=== PATIENT | female | born 1975 | race Hispanic/Latino ===

== ENCOUNTER 2018-11-14 00:56 | Inpatient (IN) | payer SELFPAY ==
[2018-11-14] MEDS ORDERED: ONDANSETRON 4 MG/2 ML VIAL ONE ×2 (02:35→13:16)
[2018-11-14] MEDS ORDERED: NA CHLORIDE 0.9% 1,000 ML ONE ×2 (02:35→05:06)
[2018-11-14] MEDS ORDERED: MORPHINE 2 MG/ML SYR ONE ×2 (02:35→03:39)
[2018-11-14 03:03] LABS: Urine Blood TRACE (NEG); Urine Glucose NEGATIVE (NEG); Urine Protein 2+ (NEG); Urine pH 8.5 (5.0-7.0)
[2018-11-14 03:20] LABS: ALT/SGPT 21 U/L (12-78); AST/SGOT 16 U/L (15-37); Albumin 4.5 g/dL (3.4-5.0); Alkaline Phosphatase 71 U/L (45-117); BUN Blood Urea Nitrogen 13 mg/dL (7-18); Bicarbonate 26 mmol/L (21-32); Bilirubin Direct 0.2 mg/dL (0-0.2); Bilirubin Total 0.5 mg/dL (0.2-1.0); Glucose Level 146 mg/dL (74-106); Lipase 118 U/L (73-393); Potassium 3.3 mmol/L (3.5-5.1); Sodium Level 141 mmol/L (136-145)
[2018-11-14 03:38] LABS: Absolute Neutrophil 14.8 K/uL (1.8-8.0); Basophils % 0.2 % (0-1.3); Hematocrit 28.7 % (36.0-45.0); Lymphocytes % 5.7 % (15.3-44.8); MPV 10.1 fL (7.6-11.3); Monocytes % 6.2 % (3.3-12.3); RBC Red Blood Cell Count 4.62 M/uL (3.86-4.86)
[2018-11-14 03:44] LABS: Urine Bacteria <20 /HPF (<20); Urine RBC <5 /HPF (NONE SEEN)
[2018-11-14 03:45] LABS: Urine Culture Reflex Order NOT NEEDED
[2018-11-14 04:14] LABS: Blood Morphology Comment NOTED (NOT SEEN); Platelet Estimate ADEQ; Polychromasia 1+
[2018-11-14 04:15] LABS: Hypochromasia 1+; Ovalocytes 1+
--- NOTE | 2018-11-14 04:38 | ER ---
Nurse's Notes [facility] Name: Sujata Santillan Age: 43 yrs Sex: Female : 1975 Arrival Date: 11/14/2018 Time: 00:56 Bed 8 Private MD: Krzysztof Padron Diagnosis: Acute appendicitis Presentation: 11/14 01:23 Presenting complaint: Patient states: vomiting since eating lunch "I think I have food kl poisoning" reports multiple episodes with abdominal pain. Transition of care: patient was not received from another setting of care. Onset of symptoms was November 14, 2018. Risk Assessment: Do you want to hurt yourself or someone else? Patient reports no desire to harm self or others. Initial Sepsis Screen: Does the patient meet any 2 criteria? No. Patient's initial sepsis screen is negative. Care prior to arrival: Medication(s) given: immodium. 01:23 Method Of Arrival: Ambulatory 01:23 Acuity: NARDA 3 kl 02:12 Initial Sepsis Screen: Does the patient have a suspected source of infection? No. rr5 Patient's initial sepsis screen is negative. Triage Assessment: 01:26 General: Appears distressed, uncomfortable, Behavior is calm, cooperative. Pain: Complains of pain in abdomen Pain currently is 10 out of 10 on a pain scale. GI: Reports lower abdominal pain, upper abdominal pain, anorexia, intolerance of fluids, intolerance of food, nausea, vomiting. 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 - Social history:: Smoking status: Patient/guardian denies using tobacco. - Ebola Screening: : Patient negative for fever greater than or equal to 101.5 degrees Fahrenheit, and additional compatible Ebola Virus Disease symptoms. Screenin:00 Abuse screen: Denies threats or abuse. Denies injuries from another. Nutritional rr5 screening: No deficits noted. Tuberculosis screening: No symptoms or risk factors identified. Fall Risk None identified. Assessment: 02:00 General: Appears in no apparent distress. uncomfortable, Behavior is calm, cooperative, rr5 appropriate for age. Pain: Complains of pain in abdomen Pain does not radiate. Pain currently is 10 out of 10 on a pain scale. Quality of pain is described as aching, Pain began gradually, Is intermittent. Neuro: Level of Consciousness is awake, alert, obeys commands, Oriented to person, place, time, situation, Appropriate for age. Cardiovascular: Capillary refill < 3 seconds Patient's skin is warm and dry. Respiratory: Airway is patent Respiratory effort is even, unlabored, Respiratory pattern is regular, symmetrical. GI: Abdomen is round Reports lower abdominal pain, upper abdominal pain, diarrhea, nausea, vomiting. : No signs and/or symptoms were reported regarding the genitourinary system. EENT: No signs and/or symptoms were reported regarding the EENT system. Derm: Skin is intact, Skin temperature is warm. Musculoskeletal: No signs and/or symptoms reported regarding the musculoskeletal system. 03:15 Reassessment: Patient appears in no apparent distress at this time. No changes from rr5 previously documented assessment. having abdominal pain pain score of 8/10. 04:10 Reassessment: Patient appears in no apparent distress at this time. Patient is alert, rr5 oriented x 3, equal unlabored respirations, skin warm/dry/pink. complaints of unusual feeling on the IV site area. no itchiness no redness, no noted. Patient states feeling better. Patient states symptoms have improved. 05:55 Reassessment: Patient appears in no apparent distress at this time. Patient is alert, rr5 oriented x 3, equal unlabored respirations, skin warm/dry/pink. complaining of abdominal pain.ED provider aware with order made and carried out. Vital Signs: 01:26 BP 122 / 53; Pulse 70; Resp 16; Temp 97.3; Pulse Ox 100% on R/A; Pain 10/10; kl 02:00 Weight 63.5 kg; Height 5 ft. 2 in. (157.48 cm); rr5 02:53 BP 116 / 63; Pulse 69; Resp 18; Pulse Ox 99% ; rr5 03:30 BP 105 / 67; Pulse 66; Resp 16; Pulse Ox 98% ; rr5 04:10 BP 101 / 61; Pulse 65; Resp 17; Pulse Ox 99% ; rr5 05:00 BP 105 / 60; Pulse 60; Resp 17; Pulse Ox 99% ; rr5 05:57 BP 103 / 71; Pulse 88; Resp 17; Pulse Ox 100% ; rr5 02:00 Body Mass Index 25.61 (63.50 kg, 157.48 cm) rr5 ED Course: 00:56 Patient arrived in ED. am2 00:57 Krzysztof Padron MD is Private Physician. am2 01:25 Triage completed. kl 01:51 Tye Gandara MD is Attending Physician. gs 02:00 Patient has correct armband on for positive identification. Bed in low position. Call rr5 light in reach. Side rails up X2. Pulse ox on. NIBP on. 02:02 Shayne Bellamy RN is Primary Nurse. rr5 02:12 Arm band placed on. rr5 02:17 Fredis Arzola PA is PHCP. cp 02:29 Radiology exam delayed due to test not completed at this time. 02:35 Inserted saline lock: 20 gauge in right forearm, using aseptic technique. Blood rr5 collected. 02:52 Urine Microscopic Only Sent. rr5 03:22 CT completed. Patient tolerated procedure well. Patient moved to CT via wheelchair. Patient moved back from CT. 04:36 Henrique Gomez MD is Hospitalizing Provider. gs 05:22 Type And Screen Sent. rr5 05:49 No provider procedures requiring assistance completed. Patient admitted, IV remains in rr5 place. intact, No redness/swelling at site. Administered Medications: 02:35 Drug: NS 0.9% 1000 ml Route: IV; Rate: 1 bolus; Site: right forearm; rr5 04:00 Follow up: Response: No adverse reaction; IV Status: Completed infusion; IV Intake: rr5 1000ml 02:40 Drug: Zofran 4 mg Route: IVP; Site: right forearm; rr5 05:48 Follow up: Response: No adverse reaction rr5 02:42 Drug: morphine 2 mg Route: IVP; Site: right forearm; rr5 05:47 Follow up: Response: No adverse reaction rr5 03:25 Drug: morphine 2 mg Route: IVP; Site: right forearm; rr5 05:46 Follow up: Response: No adverse reaction rr5 05:10 Drug: cefOXitin 1 grams Route: IVPB; Infused Over: 30 mins; Site: right forearm; rr5 05:48 Follow up: Response: No adverse reaction; IV Status: Completed infusion; IV Intake: rr5 100ml 05:11 Drug: NS 0.9% 1000 ml Route: IV; Rate: 150 ml/hr; Site: right forearm; rr5 05:46 Follow up: IV Status: Infusion continued upon admission; IV Intake: 150ml rr5 05:55 Drug: morphine 4 mg Route: IVP; Site: right forearm; rr5 07:00 Follow up: Response: No adverse reaction rr5 Intake: 04:00 IV: 1000ml; Total: 1000ml. rr5 05:46 IV: 150ml; Total: 1150ml. rr5 05:48 IV: 100ml; Total: 1250ml. rr5 Outcome: 04:38 Decision to Hospitalize by Provider. 05:49 Admitted to ER Hold. Please see [facility] for further documentation. rr5 05:49 Condition: stable 05:49 Instructed on the need for admit. 08:45 Admitted to Med/surg accompanied by tech, via wheelchair, with chart, Report called to mulugeta Schneider RN 08:46 Patient left the ED. aa5 Signatures: Loreta Buitrago RN RN Christopher Jones Audri RN RN aa5 Fredis Arzola PA PA cp Moreno, Amanda am2 Starr, Gregory, MD MD gs Roque, Raymond RN RN rr5
--- NOTE | 2018-11-14 04:39 | EDPHYS ---
Physician Documentation [facility] Name: Sujata Santillan Age: 43 yrs Sex: Female : 1975 Arrival Date: 11/14/2018 Time: 00:56 Bed 8 Private MD: Krzysztof Padron ED Physician Tye Gandara HPI: 11/14 02:25 This 43 yrs old Female presents to ER via Ambulatory with complaints of cp Vomiting. 02:25 The patient presents to the emergency department with nausea, that is moderate, cp vomiting, that is continuous, diarrhea, 4 times today. Onset: The symptoms/episode began/occurred today. Possible causes: bad food exposure. Associated signs and symptoms: Pertinent positives: abdominal pain, Pertinent negatives: constipation, fever, GI bleeding. Severity of symptoms: in the emergency department the symptoms are unchanged despite home interventions. 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 - Social history:: Smoking status: Patient/guardian denies using tobacco. - Ebola Screening: : Patient negative for fever greater than or equal to 101.5 degrees Fahrenheit, and additional compatible Ebola Virus Disease symptoms. ROS: 02:28 Eyes: Negative for injury, pain, redness, and discharge. cp 02:28 Constitutional: Positive for poor PO intake, Negative for body aches, chills, fever. 02:28 ENT: Negative for drainage from ear(s), ear pain, sore throat, difficulty swallowing, difficulty handling secretions. 02:28 Cardiovascular: Negative for chest pain. 02:28 Respiratory: Negative for cough, shortness of breath, wheezing. 02:28 Abdomen/GI: Positive for abdominal pain, nausea, vomiting, and diarrhea, Negative for constipation, black/tarry stool, rectal bleeding. 02:28 Back: Negative for pain at rest, pain with movement, radiated pain. 02:28 : Negative for urinary symptoms. 02:28 Skin: Negative for cellulitis, rash. 02:28 Neuro: Negative for altered mental status, headache, weakness. 02:28 All other systems are negative. Exam: 02:35 Constitutional: The patient appears in no acute distress, alert, awake, non-toxic, well cp developed, well nourished. 02:35 Head/Face: Normocephalic, atraumatic. cp 02:35 Eyes: Periorbital structures: appear normal, Conjunctiva: normal, no exudate, no injection, Sclera: no appreciated abnormality, Lids and lashes: appear normal, bilaterally. 02:35 ENT: External ear(s): are unremarkable, Nose: is normal, Mouth: Lips: moist, Oral mucosa: pink and intact, moist, Posterior pharynx: is normal, airway is patent, Voice: is normal. 02:35 Neck: ROM/movement: is normal, is supple, without pain, no nuchal rigidity. 02:35 Chest/axilla: Inspection: normal, Palpation: is normal, no crepitus, no tenderness. 02:35 Cardiovascular: Rate: normal, Rhythm: regular. 02:35 Respiratory: the patient does not display signs of respiratory distress, Respirations: normal, no use of accessory muscles, no retractions, no splinting, no tachypnea, labored breathing, is not present, Breath sounds: are clear throughout, no decreased breath sounds, no stridor, no wheezing. 02:35 Abdomen/GI: Inspection: abdomen appears normal, Bowel sounds: active, all quadrants, Palpation: soft, in all quadrants, moderate abdominal tenderness, in the umbilical area and right lower quadrant, rebound tenderness, is not appreciated, voluntary guarding, is elicited in the right lower quadrant. 02:35 Back: pain, is absent, ROM is normal, CVA tenderness, is absent. 02:35 Skin: cellulitis, is not appreciated, no rash present. Vital Signs: 01:26 BP 122 / 53; Pulse 70; Resp 16; Temp 97.3; Pulse Ox 100% on R/A; Pain 10/10; kl 02:00 Weight 63.5 kg; Height 5 ft. 2 in. (157.48 cm); rr5 02:53 BP 116 / 63; Pulse 69; Resp 18; Pulse Ox 99% ; rr5 03:30 BP 105 / 67; Pulse 66; Resp 16; Pulse Ox 98% ; rr5 04:10 BP 101 / 61; Pulse 65; Resp 17; Pulse Ox 99% ; rr5 05:00 BP 105 / 60; Pulse 60; Resp 17; Pulse Ox 99% ; rr5 05:57 BP 103 / 71; Pulse 88; Resp 17; Pulse Ox 100% ; rr5 02:00 Body Mass Index 25.61 (63.50 kg, 157.48 cm) rr5 MDM: 02:19 Patient medically screened. cp 02:30 Differential diagnosis: gastritis, cholecystitis, pancreatitis, appendicitis, cp diverticulitis, viral gastroenteritis, gastroenteritis, colitis. 04:36 Data reviewed: vital signs, nurses notes, radiologic studies. Response to treatment: gs the patient's symptoms have mildly improved after treatment. Physician consultation: Henrique Gomez MD and will see patient in inpatient room. 11/14 02:17 Order name: Basic Metabolic Panel 11/14 02:17 Order name: CBC with Diff 11/14 02:17 Order name: Creatinine for Radiology 11/14 02:17 Order name: Hepatic Function 11/14 02:17 Order name: Lipase 11/14 02:17 Order name: Urine Microscopic Only 11/14 02:48 Order name: Urine Dipstick--Ancillary (enter results) wa 11/14 02:48 Order name: Urine --Ancillary (enter results) wa 11/14 03:04 Order name: Urine --Ancillary; Complete Time: 03:15 EDMS 11/14 03:04 Order name: Urine Dipstick-Ancillary; Complete Time: 03:15 EDMS 11/14 03:15 Interpretation: Normal except: UKET 4+; UBLD TRACE; UPH 8.5; UPROT 2+. 11/14 03:17 Order name: Creatinine (Radiology Only); Complete Time: 04:22 EDMS 11/14 03:20 Order name: Basic Metabolic Panel; Complete Time: 04:22 EDMS 11/14 03:20 Order name: Liver (Hepatic) Function; Complete Time: 04:22 EDMS 11/14 03:20 Order name: Lipase; Complete Time: 04:22 EDMS 11/14 02:17 Order name: IV Saline Lock; Complete Time: 02:51 11/14 02:17 Order name: Labs collected and sent; Complete Time: 02:51 cp 11/14 02:18 Order name: CT Abd/Pelvis - W/Contrast 11/14 03:40 Order name: CBC with Automated Diff; Complete Time: 04:22 EDMS 11/14 03:45 Order name: Urine Microscopic Only; Complete Time: 04:22 EDMS 11/14 04:16 Order name: Manual Differential; Complete Time: 04:22 EDMS 11/14 04:23 Order name: Type And Screen 11/14 06:23 Order name: ABO/RH no charge; Complete Time: 07:15 EDMS 11/14 06:32 Order name: Type and Screen; Complete Time: 07:15 EDMS 11/14 02:17 Order name: Urine Test (obtain specimen); Complete Time: 02:52 cp Administered Medications: 02:35 Drug: NS 0.9% 1000 ml Route: IV; Rate: 1 bolus; Site: right forearm; rr5 04:00 Follow up: Response: No adverse reaction; IV Status: Completed infusion; IV Intake: rr5 1000ml 02:40 Drug: Zofran 4 mg Route: IVP; Site: right forearm; rr5 05:48 Follow up: Response: No adverse reaction rr5 02:42 Drug: morphine 2 mg Route: IVP; Site: right forearm; rr5 05:47 Follow up: Response: No adverse reaction rr5 03:25 Drug: morphine 2 mg Route: IVP; Site: right forearm; rr5 05:46 Follow up: Response: No adverse reaction rr5 05:10 Drug: cefOXitin 1 grams Route: IVPB; Infused Over: 30 mins; Site: right forearm; rr5 05:48 Follow up: Response: No adverse reaction; IV Status: Completed infusion; IV Intake: rr5 100ml 05:11 Drug: NS 0.9% 1000 ml Route: IV; Rate: 150 ml/hr; Site: right forearm; rr5 05:46 Follow up: IV Status: Infusion continued upon admission; IV Intake: 150ml rr5 05:55 Drug: morphine 4 mg Route: IVP; Site: right forearm; rr5 07:00 Follow up: Response: No adverse reaction rr5 Disposition: 20:43 Co-signature as Attending Physician, Tye Gandara MD. Disposition: 11/14/18 04:38 Hospitalization ordered by Henrique Gomez for Inpatient Admission. Preliminary diagnosis is Acute appendicitis. - Bed requested for Telemetry/MedSurg (Inpatient). - Status is Inpatient Admission. aa5 - Condition is Stable. - Problem is new. - Symptoms have improved. UTI on Admission? No Signatures: Dispatcher [employer] EDMS Loreta Buitrago, RN RN Quinten Waters MD MD [facility] Yana Mancilla RN RN aa5 Fredis Arzola PA PA cp Starr, Gregory, MD MD Shayne Bellamy, RN RN rr5 Corrections: (The following items were deleted from the chart) 05:08 04:38 Hospitalization Ordered by Henrique Gomez MD for Inpatient Admission. Preliminary diagnosis is Acute appendicitis. Bed requested for Telemetry/MedSurg (Inpatient). Status is Inpatient Admission. Condition is Stable. Problem is new. Symptoms have improved. UTI on Admission? No. 05:56 05:08 11/14/2018 04:38 Hospitalization Ordered by Henrique Gomez MD for Inpatient Admission. Preliminary diagnosis is Acute appendicitis. Bed requested for [facility] ER HOLD. Status is Inpatient Admission. Condition is Stable. Problem is new. Symptoms have improved. UTI on Admission? No. 08:46 05:56 11/14/2018 04:38 Hospitalization Ordered by Henrique Gomez MD for Inpatient aa5 Admission. Preliminary diagnosis is Acute appendicitis. Bed requested for Telemetry/MedSurg (Inpatient). Status is Inpatient Admission. Condition is Stable. Problem is new. Symptoms have improved. UTI on Admission? No.
[2018-11-14] MEDS ORDERED: NA CHLORIDE 0.9% 100 ML IV ONE (05:06)
[2018-11-14] MEDS ORDERED: CEFOXITIN/SWI 1gm 1 GM/10 ML SYR ONE (05:07)
[2018-11-14] MEDS ORDERED: MORPHINE 4 MG/ML SYR ONE (06:04)
[2018-11-14] MEDS ORDERED: ACETAMINOPHEN 500 MG TAB PO PRN (07:33)
[2018-11-14] MEDS ORDERED: ONDANSETRON 4 MG/2 ML VIAL IV PRN (07:33)
[2018-11-14] MEDS ORDERED: MORPHINE 4 MG/ML SYR IV PRN (07:33)
[2018-11-14 09:00] VITALS: BMI 25.6
[2018-11-14] MEDS: D5 0.45 NS 1,000 ML IV SCH ×4 (09:40→23:08)
[2018-11-14 10:21] LABS: Urine Appearance CLEAR; Urine Bilirubin NEGATIVE (NEG); Urine Blood TRACE (NEG); Urine Color YELLOW; Urine Glucose NEGATIVE (NEG); Urine Protein NEGATIVE (NEG); Urine Specific Gravity >=1.030 (1.005-1.030); Urine Urobilinogen 0.2 mg/dL (0.2-1.0)
[2018-11-14 10:22] LABS: Urine Microscopic Reflex ORDER UMIC
[2018-11-14 11:28] LABS: Urine Bacteria NONE SEEN /HPF (<20); Urine Culture Reflex Order NOT NEEDED
[2018-11-14] MEDS ORDERED: Ringers Lactate 1,000 ML IV ONE ×2 (11:46→13:12)
[2018-11-14] MEDS: CEFOXITIN/SWI 1gm 1 GM/10 ML SYR IV SCH ×3 (12:00→23:22)
[2018-11-14] MEDS ORDERED: CEFOXITIN SODIUM 1 GM/VIAL IVPB SCH (12:00)
[2018-11-14] MEDS ORDERED: PROPOFOL 200 MG/20 ML VIAL IV ONE (12:09)
[2018-11-14] MEDS ORDERED: ROCURONIUM 50 MG/5 ML VIAL IV ONE (12:09)
[2018-11-14] MEDS ORDERED: MIDAZOLAM HCL 2 MG/2 ML INJ ONE (12:09)
[2018-11-14] MEDS ORDERED: FENTANYL CITR 100 MCG/2 ML ONE ×2 (12:09→12:45)
[2018-11-14] MEDS ORDERED: LIDOCAINE 1% MPF 5 ML VIAL ONE (12:09)
[2018-11-14] MEDS ORDERED: BUPIVACAINE 0.5% PF 10 ML VIAL ONE ×2 (12:16)
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
[2018-11-14] MEDS ORDERED: SUCCINYLCHOLINE 20 MG/ML (10 ML) IV ONE (12:20)
[2018-11-14] MEDS ORDERED: LANO/MINERAL OIL/PETRO 3.5 GM ONE (12:43)
[2018-11-14] MEDS ORDERED: DEXAMETHASONE 10 MG/ML VIAL ONE (12:45)
[2018-11-14] MEDS ORDERED: KETOROLAC 30 MG/ML INJ ONE (13:15)
[2018-11-14] MEDS ORDERED: GLYCOPYRROLATE 0.2 MG/ML SYR ONE (13:15)
[2018-11-14] MEDS ORDERED: NEOSTIGMINE 1 MG/ML -10 ML VIAL ONE (13:16)
--- NOTE | 2018-11-14 13:20 | P.OP ---
Preoperative diagnosis: Acute abdomen Postoperative diagnosis: Acute appendicitis Primary procedure: Laparoscopic appendectomy Secondary procedure: BRYANT BLOCK Anesthesia: General Estimated blood loss: Less than 10 cc Specimen: 1 appendix Operative Technique: The patient brought the operating room placed supine on the table. After the induction of adequate general endotracheal anesthesia, the area of the abdomen was prepped with a DuraPrep solution, and she was draped in usual aseptic manner. A subumbilical incision was made. This brought down through skin and subcutaneous tissue. The Visiport was now used to enter the peritoneal cavity and created pneumoperitoneum to approximately 12 mm of mercury. Under direct vision a 5 mm trocar was placed in the lower midline, and another in the right upper quadrant. With the patient placed in Trendelenburg and rolled to the left really visualize the right lower quadrant. We could see there were some adhesions of omentum to the anterior abdominal wall were she had her previous . These were taken down using blunt sharp dissection. Attention was now turned towards the right lower quadrant. We could see a inflamed S operative appendix in the right lower quadrant. There was no evidence of perforation but there was considerable edema around the junction of the of the distal portion of the appendix were curled back up onto the cecum. The appendix was on full did. We could identify the base of the appendix at its junction with the cecum. A window was made in the mesentery of the appendix. The linear Stapler was now introduced and placed across the base in of the appendix at its junction with the cecum. The instrument was fired. The mesentery of the appendix was now identified. A vascular reload was applied to the stapling device which was placed across this. This was fired. Adequate hemostasis having been ensured these were was withdrawn. This pus was now placed into an Endo-Catch and brought out through the umbilical trocar site. The inspection of the right lower quadrant showed that there was some fluid in the pelvis which was aspirated. Some fibrous exudate was also aspirated using the suction device. The irrigant cabello francis fluid was used until the effluent was clear. At this point the patient is taken out of Trendelenburg again any remaining fluid was irrigated and removed from the pelvis. The umbilical trocar was now withdrawn. The umbilical trocar site was approximated with 3 interrupted sutures of absorbable material. Santana were then applied to the skin. Anterior abdominal wall was also blocked using 0.25% Marcaine as BRYANT block At the end the procedure the patient is in stable condition when sent to the recovery room. Needle sponge instrument count were correct. No drains were placed. Complications: None Transferred to: Recovery Room Condition: Good
[2018-11-14] MEDS: HYDROMORPHONE HCL 1 MG/ML INJ ONE ×2 (13:43→13:50)
[2018-11-14] MEDS: HYDROCODONE/APAP 7.5/325 MG TAB PO PRN (20:06)
--- NOTE | 2018-11-14 21:38 | RAD REPORT ---
EXAM DESCRIPTION: CT - Abdomen Pelvis W Contrast - 11/14/2018 5:40 am CLINICAL HISTORY: 43-year-old female with right lower abdomen pain. COMPARISON: None. TECHNIQUE: Axial CT images of the abdomen and pelvis was performed following the administration of i ntravenous contrast. Sagittal and coronal reconstructed images were then performed. The CT study is p erformed according to ALARA (as low as reasonably achievable) or ALARA/IMAGE GENTLY, with automatic a djustment of mA and/or kV according to patient size. FINDINGS: Lung bases: The lung bases are clear. Liver: The liver is normal in size and configuration. No focal hepatic abnormalities are identified. Liver attenuation is within normal limits. Spleen: The spleen is normal in size, configuration and attenuation. There are multiple incidental sp lenic granulomas. Gallbladder and bile duct: The gallbladder is well distended and unremarkable. There is no biliary du ctal dilatation. Pancreas: The pancreas is grossly normal in size and configuration. Adrenal Glands: The adrenal glands are normal in size and configuration. Kidneys: The kidneys are normal in size and configuration. There is no evidence of hydronephrosis. Th ere is a punctate nonobstructing midpole left renal calculus. No definite solid or cystic renal mass lesions are identified. Stomach: The stomach is grossly normal. There is no significant hiatal hernia. Bowel: The bowel gas pattern is nonspecific and nonobstructive. Appendix: There is a dilated fluid filled tubular structure in the right lower quadrant with surround ing mesenteric inflammation consistent with acute appendicitis. The tip of the appendix measures appr oximately 9 mm in diameter. There is no evidence of rupture. There is no free fluid in the pelvis. Free air: There is no evidence of free air. Free fluid: There is no evidence of free fluid. Vasculature: The aorta is normal in caliber and contour. The inferior vena cava is grossly unremarkab le. Lymphadenopathy: No pathologic lymphadenopathy is identified. Bladder:The bladder is incompletely distended and smooth in contour.. Reproductive: The uterus is normal in size. There is retroflexion of the uterus and there is a 1.8 x 1.6 cm focal area of decreased attenuation within the lower uterine segment or cervix which may repre sent a fibroid or nabothian cysts. There is also a focal 2.5 x 2.2 cm soft tissue mass arising from t he anterior body of the uterus likely representing an exophytic subserosal fibroid. Bones: No acute osseous abnormalities are identified. Soft tissues: No focal soft tissue abnormalities are identified. IMPRESSION: 1. CT findings consistent with acute non ruptured appendicitis. 2. Retroflexed uterus which contains an approximately 2.5 cm exophytic subserosal fibroid anteriorly and either a myometrial fibroid in the lower uterine segment versus a nabothian cyst. 3. Evidence of prior granulomatous disease. 4. Nonobstructing punctate calcification in the midpole of the left kidney. Electronically signed by Jackie Madrid DO 11/14/2018 4:25 AM BUS VAN DRIVER Due to temporary technical issues with the PACS/Fluency reporting system, reports are being signed by the in house radiologist as a courtesy to ensure prompt reporting. The interpreting radiologist is f ully responsible for the content of the report.
[2018-11-15 00:34] VITALS: O2SAT 99
[2018-11-15] MEDS: HYDROCODONE/APAP 7.5/325 MG TAB PO PRN ×2 (03:57→12:39)
[2018-11-15] MEDS: CEFOXITIN/SWI 1gm 1 GM/10 ML SYR IV SCH ×3 (05:20→18:00)
[2018-11-15] MEDS: D5 0.45 NS 1,000 ML IV SCH ×3 (05:20→16:00)
[2018-11-15 18:25] VITALS: BP 109/65; TEMP 98.6
== END 2018-11-15 17:57 | disposition home or self-care (01) | DRG 343 ==
LOC: ER 00:56 → ERHOLD 04:57 → 2ND 08:40
PROVIDERS: ADMIT Surgery; ATTEND Surgery
PROC: 0DTJ4ZZ Resection of Appendix, Percutaneous Endoscopic Approach (ICD-10-PCS; principal; 2018-11-14 12:00)
DX: K35.80 Unspecified acute appendicitis (principal)
CPT/HCPCS: 36415; 74177; 80048; 80076; 81003; 81015; 81025; 83690; 85025; 86850; 86900; 86901; 88304; 96361; 96365; 96375; 99285; J0330; J1100; J1170; J2250; J2270; J2405; J2704; J2710; J3010; J7030; Q9967

== ENCOUNTER 2024-05-04 16:58 | Emergency (ER) | payer SELFPAY ==
--- OUTSIDE RECORDS SUMMARY | 2024-05-04 17:02 | XMS REPORT | Continuity of Care Document ---
Author Name Unknown Address [address] [facility] [address] [place] [address] [facility] Address [address] [facility] [address] [place] [address] Care Team Providers Care Coal Getter Name Role Phone SINTIA TORRES Primary Care Physician Unavailab le GC_GCBZW_Kadiyala_S Attending Clinician Unavaila brittney WILLIAMSON IIIMAURICE Attending Clinician Unavaila ble GC_GCBZW_Kadiyala_S Admitting Clinician Unavailtyra WILLIAMSON IIIMAURICE A Admitting Clinician Unavaila ble Allergies, Adverse Reactions, Alerts Allergy Name Allergy Type Status Severity Reaction(s) Onset Date Inactive Date Treating Clinician Comments Source NO KNOWN ALLERGIE S Drug Class Active [facility] Medications Ordered Medication Name Filled Medication Name Start Date Stop Date Current Medication? Ordering Clinician Indication Dosage Frequency Signature (SIG) Comments Components Source TAKE 10ML Q4-6HRS PRN COUGH 2021-0915 00:00: 00 No INJECT 1 ML INTRAMUSCUL RUDDY ONCE EVERY 3 MONTHS. 05-03 00:00: 00 No INJECT 1 ML INTRAMUSCUL RUDDY ONCE EVERY 3 MONTHS. 05-03 00:00: 00 No 150 INJECT 1 ML INTRAMUSCUL RUDDY ONCE EVERY 3 MONTHS. 05-03 00:00: 00 No medroxyprog esterone 150 mg/mL intramuscul ar suspension 05-05 00:00: 00 No 1mg/mL amoxicillin 500 mg tablet 2018-09 0 00:00: 00 No 1mg amoxicillin 500 mg tablet 2018-09 0 00:00: 00 No 1mg amoxicillin 500 mg tablet 2018-09 021 00:00: 00 No 1mg Vital Signs Vital Name Observation Time Observation Value Comments S ource Height Measured 2022-08-02 17:21:00 61.69 inches Body Temperature 2022-08-02 17:21:00 97.30 degrees Heart Rate 2022-08-02 17:21:00 81.00 /min Respiratory Rate 2022-08-02 17:21:00 16.00 /min BP Systolic 2022-08-02 17:21:00 145 mm[Hg] BP Diastolic 2022-08-02 17:21:00 83 mm[Hg] Weight Measured 2022-08-02 17:21:00 147.00 pounds BP Systolic 2022-05-04 16:40:00 128 mm[Hg] BP Diastolic 2022-05-04 16:40:00 76 mm[Hg] Weight Measured 2022-05-04 16:40:00 146.40 pounds Height Measured 2022-05-04 16:40:00 61.69 inches Body Temperature 2022-05-04 16:40:00 98.40 degrees Heart Rate 2022-05-04 16:40:00 102.00 /min Respiratory Rate 2022-05-04 16:40:00 BP Systolic 2022-02-12 17:34:00 121 mm[Hg] BP Diastolic 2022-02-12 17:34:00 66 mm[Hg] Weight Measured 2022-02-12 17:34:00 148.00 pounds Height Measured 2022-02-12 17:34:00 61.69 inches Body Temperature 2022-02-12 17:34:00 98.30 degrees Heart Rate 2022-02-12 17:34:00 94.00 /min Respiratory Rate 2022-02-12 17:34:00 BP Systolic 2022-01-18 14:04:00 118 mm[Hg] BP Diastolic 2022-01-18 14:04:00 78 mm[Hg] Weight Measured 2022-01-18 14:04:00 145.40 pounds Height Measured 2022-01-18 14:04:00 61.69 inches Body Temperature 2022-01-18 14:04:00 98.80 degrees Heart Rate 2022-01-18 14:04:00 93.00 /min Respiratory Rate 2022-01-18 14:04:00 BP Systolic 2021-11-24 10:23:00 99 mm[Hg] BP Diastolic 2021-11-24 10:23:00 54 mm[Hg] Weight Measured 2021-11-24 10:23:00 144.60 pounds Height Measured 2021-11-24 10:23:00 61.69 inches Body Temperature 2021-11-24 10:23:00 98.20 degrees Heart Rate 2021-11-24 10:23:00 82.00 /min Respiratory Rate 2021-11-24 10:23:00 21.00 /min BP Systolic 2021-07-21 17:03:00 126 mm[Hg] BP Diastolic 2021-07-21 17:03:00 76 mm[Hg] Weight Measured 2021-07-21 17:03:00 141.00 pounds Height Measured 2021-07-21 17:03:00 61.69 inches Body Temperature 2021-07-21 17:03:00 98.90 degrees Heart Rate 2021-07-21 17:03:00 82.00 /min Respiratory Rate 2021-07-21 17:03:00 BP Systolic 2021-05-05 10:31:00 130 mm[Hg] BP Diastolic 2021-05-05 10:31:00 77 mm[Hg] Weight Measured 2021-05-05 10:31:00 143.60 pounds Height Measured 2021-05-05 10:31:00 61.69 inches Body Temperature 2021-05-05 10:31:00 98.40 degrees Heart Rate 2021-05-05 10:31:00 80.00 /min Respiratory Rate 2021-05-05 10:31:00 BP Systolic 2019-07-13 14:15:00 107 mm[Hg] BP Diastolic 2019-07-13 14:15:00 65 mm[Hg] Weight Measured 2019-07-13 14:15:00 147.60 pounds Height Measured 2019-07-13 14:15:00 62.00 inches Body Temperature 2019-07-13 14:15:00 99.10 degrees Heart Rate 2019-07-13 14:15:00 93.00 /min Respiratory Rate 2019-07-13 14:15:00 16.00 /min Plan of Care Planned Activity Planned Date Details Comments Source Goal Plan of Care Note [code = 36419-9] Goal Plan of Care Note [code = 10411-9] Goal Plan of Care Note [code = 12299-2] Goal Plan of Care Note [code = 60189-0] Goal Plan of Care Note [code = 16813-4] Goal Plan of Care Note [code = 91964-3] Goal Plan of Care Note [code = 55643-0] Goal Plan of Care Note [code = 32721-1] Goal Plan of Care Note [code = 75434-3] Goal Plan of Care Note [code = 87077-6] Goal Plan of Care Note [code = 87813-0] Goal Plan of Care Note [code = 61689-2] Goal Plan of Care Note [code = 13804-0] Goal Plan of Care Note [code = 03098-1] Goal Plan of Care Note [code = 06223-2] Goal Plan of Care Note [code = 86468-1] Goal Plan of Care Note [code = 86201-6] Goal Plan of Care Note [code = 03057-7] Goal Plan of Care Note [code = 97867-5] Goal Plan of Care Note [code = 23997-9] Goal Plan of Care Note [code = 18157-3] Goal Plan of Care Note [code = 15695-1] Goal Plan of Care Note [code = 67322-2] Goal Plan of Care Note [code = 97309-5] Goal Plan of Care Note [code = 39498-6] Goal Plan of Care Note [code = 81523-2] Goal Plan of Care Note [code = 01703-8] Goal Plan of Care Note [code = 49023-3] Goal Plan of Care Note [code = 42637-2] Goal Plan of Care Note [code = 57498-5] Goal Plan of Care Note [code = 31731-4] Goal Plan of Care Note [code = 65762-1] Goal Plan of Care Note [code = 72623-2] Goal Plan of Care Note [code = 25345-7] Goal Plan of Care Note [code = 90193-0] Goal Plan of Care Note [code = 56978-6] Goal Plan of Care Note [code = 55062-1] Goal Plan of Care Note [code = 78705-0] Goal Plan of Care Note [code = 80276-6] Goal Plan of Care Note [code = 73504-4] Goal Plan of Care Note [code = 72306-1] Goal Plan of Care Note [code = 50312-3] Goal Plan of Care Note [code = 89492-2] Goal Plan of Care Note [code = 10926-5] Encounters Start Date/Time End Date/Time Encounter Type Admission Type Attending [facility] Care Department Encounter ID Source 2023-07-23 00:00:00 2023-07-23 00:00:00 Outpatient GC_GCBZW_Ka diyala_S PRIV PRIV [id number] [facility] 2023-07-22 00:00:00 2023-07-22 00:00:00 Outpatient GC_GCBZW_Ka diyala_S PRIV PRIV [id number] [facility] 2023-03-20 10:18:56 2023-03-20 10:18:56 Outpatient SFA SFA [id number] Bret Fisher Jose F 2023-01-24 16:14:52 2023-01-24 16:14:52 Outpatient SFA SFA [id number] Bret Fisher Jose F 2022-10-30 15:50:50 2022-10-30 15:50:50 Outpatient SFA SFA [id number] Bret Fisher Jose F 2022-10-02 09:24:24 2022-10-02 09:24:24 Outpatient SFA SFA [id number] Bret Fisher Jose F 2022-08-08 08:24:12 2022-08-08 08:24:12 Outpatient SFA SFA [id number] Bret Kohler 2022-08-07 14:47:16 2022-08-07 14:47:16 Outpatient SFA SFA [id number] Bret Kohler 2022-08-07 00:00:00 2022-08-07 00:00:00 Outpatient Visit [id number] 2022-08-02 17:16:16 2022-08-02 17:16:16 Outpatient SFA [facility] [id number] Bret Kohler 2022-08-02 00:00:00 2022-08-02 00:00:00 Outpatient Visit [id number] 2022-05-04 00:00:00 2022-05-04 00:00:00 Outpatient Visit [id number] 6710-01-03 12:16:23 2019-09-25 14:21:00 Emergency X MAURICE WILLIAMSON III [facility] [id number] [facility] Results Test Description Test Time Test Comments Results Result Co mments Source CULTURE, ROUTINE 2023-04-03 09:20:57 SPECIMEN NUMBER: [id number] CULTURE, ROUTINE SPECIMEN NUMBER: [id number] SPECIMEN COMMENT: SPUTUM SOURCE: SPUTUM REPORT STATUS: FINAL ISOLATE NUMBER 1: IDENTIFICATION: 03/23/2023 ABUNDANT GROUP A BETA HEMOLYTIC STREPTOCOCCUS PRESENT ADDITIONAL OBSERVATIONS: PENICILLIN AND AMPICILLIN ARE DRUGS OF CHOICE FOR TREATMENT OF B-HEMOLYTIC STREPTOCOCCAL INFECTIONS. SUSCEPTIBILITY TESTING OF PENICILLIN AND OTHER B-LACTAMS APPROVED BY THE [place] [employer]OD AND DRUG [employer]RATION FOR TREATMENT OF B-HEMOLYTIC STREPTOCOCCAL INFECTIONS NEED NOT BE PERFORMED ROUTINELY. UNLESS OTHERWISE INDICATED, ALL TESTING PERFORMED AT [facility] [address] [place] [address] ASTROBIOLOGIST: RONI MARIE M.D. CLIA NUMBER [id number] [facility] [place]. [id number] PAP TEST, THINPREP, [id number] 00:00:00* Test Item Value Reference Range Interpretation Comme nts SOURCE: (test code = 8001) Cervical/Endocervical SLIDES: (test code = 8011) 1 LMP: (test code = 8021) 04/27/2021 SPECIMEN ADEQUACY: (test code = 22959) (NOTE) INTERPRETATION: (test code = 62032) NILM/NO EPITH. ABNORMALITY;SEE BELOW FINISHER ACCORDION: (test code = 8101) Mirnacharanjit Barnardh CookCT(ASCP)IAC QC TECHNOLOGIST: (test code = 8111) Michelle VallejoCT(ASCP) IAC LOCATION: (test code = 51670) (NOTE) CPT: (test code = 8140) (NOTE) PAP TEST, THINPREP, [id number] 00:00:00* Test Item Value Reference Range Interpretation Comme nts SOURCE: (test code = 8001) Cervical/Endocervical SLIDES: (test code = 8011) 1 LMP: (test code = 8021) 04/27/2021 SPECIMEN ADEQUACY: (test code = 13956) (NOTE) INTERPRETATION: (test code = 72869) NILM/NO EPITH. ABNORMALITY;SEE BELOW FINISHER ACCORDION: (test code = 8101) Mirnacharanjit Barnarddaphney Cook,CT(ASCP)IAC QC TECHNOLOGIST: (test code = 8111) Michelle VallejoWA(ASCP) IAC LOCATION: (test code = 20011) (NOTE) CPT: (test code = 8140) (NOTE) PAP TEST, THINPREP, [id number] 00:00:00* Test Item Value Reference Range Interpretation Comme nts SOURCE: (test code = 8001) Cervical/Endocervical SLIDES: (test code = 8011) 1 LMP: (test code = 8021) 04/27/2021 SPECIMEN ADEQUACY: (test code = 32105) (NOTE) INTERPRETATION: (test code = 27972) NILM/NO EPITH. ABNORMALITY;SEE BELOW FINISHER ACCORDION: (test code = 8101) Mirnacharanjit Barnarddaphney Cook,CT(ASCP)IAC QC TECHNOLOGIST: (test code = 8111) Michelle VallejoWA(ASCP) IAC LOCATION: (test code = 17916) (NOTE) CPT: (test code = 8140) (NOTE) PAP TEST, THINPREP, [id number] 00:00:00* Test Item Value Reference Range Interpretation Comme nts SOURCE: (test code = 8001) Cervical/Endocervical SLIDES: (test code = 8011) 1 LMP: (test code = 8021) 04/27/2021 SPECIMEN ADEQUACY: (test code = 06988) (NOTE) INTERPRETATION: (test code = 06344) NILM/NO EPITH. ABNORMALITY;SEE BELOW FINISHER ACCORDION: (test code = 8101) Mirna Nguyen CookCT(ASCP)IAC QC TECHNOLOGIST: (test code = 8111) Michelle CarrionWA(ASCP) [facility] LOCATION: (test code = 89270) (NOTE) CPT: (test code = 8140) (NOTE) PAP TEST, THINPREP, [id number] 00:00:00* Test Item Value Reference Range Interpretation Comme nts SOURCE: (test code = 8001) Cervical/Endocervical SLIDES: (test code = 8011) 1 LMP: (test code = 8021) 04/27/2021 SPECIMEN ADEQUACY: (test code = 77621) (NOTE) INTERPRETATION: (test code = 03010) NILM/NO EPITH. ABNORMALITY;SEE BELOW FINISHER ACCORDION: (test code = 8101) Mirna CookWA(ASCP)IAC QC TECHNOLOGIST: (test code = 8111) Michelle CarrionWA(ASCP) [facility] LOCATION: (test code = 51212) (NOTE) CPT: (test code = 8140) (NOTE) GC AND CHLAMYDIA AMPLIFIED, [id number] 00:00:00* Test Item Value Reference Range Interpretation Comme nts GONORRHEA, TMA (test code = 37626) NEGATIVE CHLAMYDIA, TMA (test code = 06488) NEGATIVE GC AND CHLAMYDIA AMPLIFIED, [id number] 00:00:00* Test Item Value Reference Range Interpretation Comme nts GONORRHEA, TMA (test code = 04347) NEGATIVE CHLAMYDIA, TMA (test code = 26370) NEGATIVE HPV HIGH RISK WITH GENOTYPE, [id number] 00:00:00* Test Item Value Reference Range Interpretation Comme nts HPV HIGH RISK INTERP (test c ode = 39883) NEGATIVE HPV 16 (test code = 37335) NEGATIVE HPV 18 (test code = 01370) NEGATIVE HPV, HR, OTHER GENOTYPES (te st code = 72933) NEGATIVE HPV HIGH RISK WITH GENOTYPE, [id number] 00:00:00* Test Item Value Reference Range Interpretation Comme nts HPV HIGH RISK INTERP (test c ode = 00558) NEGATIVE HPV 16 (test code = 18559) NEGATIVE HPV 18 (test code = 71527) NEGATIVE HPV, HR, OTHER GENOTYPES (te st code = 05559) NEGATIVE GC AND CHLAMYDIA AMPLIFIED, [id number] 00:00:00* Test Item Value Reference Range Interpretation Comme nts GONORRHEA, TMA (test code = 08265) NEGATIVE CHLAMYDIA, TMA (test code = 74128) NEGATIVE GC AND CHLAMYDIA AMPLIFIED, [id number] 00:00:00* Test Item Value Reference Range Interpretation Comme nts GONORRHEA, TMA (test code = 13130) NEGATIVE CHLAMYDIA, TMA (test code = 85286) NEGATIVE HPV HIGH RISK WITH GENOTYPE, [id number] 00:00:00* Test Item Value Reference Range Interpretation Comme nts HPV HIGH RISK INTERP (test c ode = 30034) NEGATIVE HPV 16 (test code = 66239) NEGATIVE HPV 18 (test code = 01062) NEGATIVE HPV, HR, OTHER GENOTYPES (te st code = 32254) NEGATIVE HPV HIGH RISK WITH GENOTYPE, [id number] 00:00:00* Test Item Value Reference Range Interpretation Comme nts HPV HIGH RISK INTERP (test c ode = 11039) NEGATIVE HPV 16 (test code = 73416) NEGATIVE HPV 18 (test code = 73444) NEGATIVE HPV, HR, OTHER GENOTYPES (te st code = 51030) NEGATIVE HPV HIGH RISK WITH GENOTYPE, [id number] 00:00:00* Test Item Value Reference Range Interpretation Comme nts HPV HIGH RISK INTERP (test c ode = 72372) NEGATIVE HPV 16 (test code = 66742) NEGATIVE HPV 18 (test code = 48649) NEGATIVE HPV, HR, OTHER GENOTYPES (te st code = 75523) NEGATIVE HPV HIGH RISK WITH GENOTYPE, [id number] 00:00:00* Test Item Value Reference Range Interpretation Comme nts HPV HIGH RISK INTERP (test c ode = 39347) NEGATIVE HPV 16 (test code = 27887) NEGATIVE HPV 18 (test code = 02850) NEGATIVE HPV, HR, OTHER GENOTYPES (te st code = 61258) NEGATIVE GC AND CHLAMYDIA AMPLIFIED, [id number] 00:00:00* Test Item Value Reference Range Interpretation Comme nts GONORRHEA, TMA (test code = 57489) NEGATIVE CHLAMYDIA, TMA (test code = 25360) NEGATIVE GC AND CHLAMYDIA AMPLIFIED, [id number] 00:00:00* Test Item Value Reference Range Interpretation Comme nts GONORRHEA, TMA (test code = 89915) NEGATIVE CHLAMYDIA, TMA (test code = 52402) NEGATIVE HIV AB/AG COMBO RFLX [id number] 00:00:00* Test Item Value Reference Range Interpretation Comme nts HIV 1/2 4TH GEN, RFLX CONF ( test code = 3514) NON-REACTIVE [id number] 00:00:00* Test Item Value Reference Range Interpretation Comme nts RPR RESULT (test code = 3501) NON-REACTIVE RPR TITER (test code = 3500) NOT INDIC. TITER [id number] 00:00:00* Test Item Value Reference Range Interpretation Comme nts RPR RESULT (test code = 3501) NON-REACTIVE RPR TITER (test code = 3500) NOT INDIC. TITER [id number] 00:00:00* Test Item Value Reference Range Interpretation Comme nts RPR RESULT (test code = 3501) NON-REACTIVE RPR TITER (test code = 3500) NOT INDIC. TITER HIV AB/AG COMBO RFLX [id number] 00:00:00* Test Item Value Reference Range Interpretation Comme nts HIV 1/2 4TH GEN, RFLX CONF ( test code = 3514) NON-REACTIVE [id number] 00:00:00* Test Item Value Reference Range Interpretation Comme nts RPR RESULT (test code = 3501) NON-REACTIVE RPR TITER (test code = 3500) NOT INDIC. TITER HIV AB/AG COMBO RFLX [id number] 00:00:00* Test Item Value Reference Range Interpretation Comme nts HIV 1/2 4TH GEN, RFLX CONF ( test code = 3514) NON-REACTIVE HIV AB/AG COMBO RFLX [id number] 00:00:00* Test Item Value Reference Range Interpretation Comme nts HIV 1/2 4TH GEN, RFLX CONF ( test code = 3514) NON-REACTIVE [id number] 00:00:00* Test Item Value Reference Range Interpretation Comme nts RPR RESULT (test code = 3501) NON-REACTIVE RPR TITER (test code = 3500) NOT INDIC. TITER [id number] 00:00:00* Test Item Value Reference Range Interpretation Comme nts RPR RESULT (test code = 3501) NON-REACTIVE RPR TITER (test code = 3500) NOT INDIC. TITER [id number] 00:00:00* Test Item Value Reference Range Interpretation Comme nts RPR RESULT (test code = 3501) NON-REACTIVE RPR TITER (test code = 3500) NOT INDIC. TITER [id number] 00:00:00* Test Item Value Reference Range Interpretation Comme nts RPR RESULT (test code = 3501) NON-REACTIVE RPR TITER (test code = 3500) NOT INDIC. TITER [id number] 00:00:00* Test Item Value Reference Range Interpretation Comme nts RPR RESULT (test code = 3501) NON-REACTIVE RPR TITER (test code = 3500) NOT INDIC. TITER HIV AB/AG COMBO RFLX [id number] 00:00:00* Test Item Value Reference Range Interpretation Comme nts HIV 1/2 4TH GEN, RFLX CONF ( test code = 3514) NON-REACTIVE HIV AB/AG COMBO RFLX [id number] 00:00:00* Test Item Value Reference Range Interpretation Comme nts HIV 1/2 4TH GEN, RFLX CONF ( test code = 3514) NON-REACTIVE
[2024-05-04 20:01] LABS: Absolute Eosinophils 0.2 K/uL (0-0.5); Absolute Lymphocytes (CBC) 1.6 K/uL (0.7-4.9); Absolute Monocytes 0.6 K/uL (0.1-1.3); Basophils % 0.3 % (0-1.3); Eosinophils % 3.7 % (0-4.4); Hematocrit 33.6 % (36.0-45.0); Hemoglobin 10.8 g/dL (12.0-15.0); Lymphocytes % 29.2 % (15.3-44.8); MCH 25.3 pg (27.0-35.0); MCHC 32.1 g/dL (32.0-36.0); Monocytes % 11.2 % (3.3-12.3); Neutrophils % 55.6 % (41.7-73.7); Nucleated Red Blood Cells % 0.5 % (0-0); Platelets 232 thou/uL (152-406); RBC Red Blood Cell Count 4.25 M/uL (3.86-4.86); Red Cell Distribution Width 16.2 % (12.1-15.2)
[2024-05-04 20:06] LABS: Calcium Oxalate Crystals- Ur Few /HPF (None Seen); Specific Gravity > 1.030 (1.005-1.030); Sqamous Epithelial <5 /HPF (None Seen); Urine Bacteria None Seen /HPF (<20); Urine Bilirubin NEGATIVE (Negative); Urine Blood 3+ (Negative); Urine Clarity Extremely Turbid (Clear); Urine Color Yellow (Yellow); Urine Culture Reflex Order NOT NEEDED; Urine Glucose NEGATIVE (Negative); Urine Ketones NEGATIVE (Negative); Urine Microscopic Reflex YN ORDER UMIC; Urine Mucus 4+ /HPF (None Seen); Urine Nitrite NEGATIVE (Negative); Urine Protein 1+ (Negative); Urine RBC >50 /HPF (None Seen); Urine Urobilinogen 1+ (Normal); Urine WBC <5 /HPF (<5); Urine pH 6.5 (5.0-7.0)
[2024-05-04 20:20] LABS: Albumin 3.4 g/dL (3.4-5.0); Albumin/Globulin Ratio 0.8 (1.1-1.8); Anion Gap 11.1 mEq/L (5.0-15.0); Bilirubin Total 0.3 mg/dL (0.2-1.0); Globulin 4.5 g/dL (2.3-3.5); Potassium 3.1 mEq/L (3.5-5.1); Protein, Total 7.9 g/dL (6.4-8.2)
[2024-05-04 22:12] LABS: Specific Gravity > 1.030 (1.005-1.030)
--- NOTE | 2024-05-05 00:24 | ER ---
Nurse's Notes [facility] Name: Sujata Santillan Age: 48 yrs Sex: Female : 1975 Arrival Date: 05/04/2024 Time: 16:58 Bed 9 Private MD: Diagnosis: Enteritis;Hypokalemia Presentation: 05/04 17:52 Chief complaint: Patient states: Damon developed abdominal pain and bloating. Pt has cm10 tried taking OTC medications with no relief. Pt also reports that the pain is worse with eating and reports vomiting. Coronavirus screen: Client denies travel out of the [place] in the last 14 days. Ebola Screen: Patient denies travel to an Ebola-affected area in the 21 days before illness onset. No symptoms or risks identified at this time. Initial Sepsis Screen: Does the patient meet any 2 criteria? HR > 90 bpm. Does the patient have a suspected source of infection? No. Patient's initial sepsis screen is negative. Risk Assessment: Do you want to hurt yourself or someone else? Patient reports no desire to harm self or others. Onset of symptoms was May 04, 2024. 17:52 Method Of Arrival: Ambulatory cm10 17:52 Acuity: NARDA 3 cm10 Triage Assessment: 17:55 General: Appears in no apparent distress. uncomfortable, Behavior is calm, cooperative. cm10 Neuro: No deficits noted. Level of Consciousness is awake, alert, obeys commands, Oriented to person, place, time, situation, Appropriate for age. Respiratory: No deficits noted. Airway is patent Respiratory effort is even, unlabored, Respiratory pattern is regular, symmetrical. Historical: - Allergies: 17:54 No Known Allergies; cm10 - Home Meds: 17:54 None [Active]; cm10 - PMHx: 17:54 None; cm10 - PSHx: 17:54 Appendectomy; section; cm10 - Immunization history:: Adult Immunizations up to date. - Infectious Disease History:: Denies. - Social history:: Smoking status: Patient denies any tobacco usage or history of. Screenin:19 [facility] ED Fall Risk Assessment (Adult) History of falling in the last 3 months, kl including since admission No falls in past 3 months (0 pts) Confusion or Disorientation No (0 pts) Intoxicated or Sedated No (0 pts) Impaired Gait No (0 pts) Mobility Assist Device Used No (0 pt) Altered Elimination No (0 pt) Score/Fall Risk Level 0 - 2 = Low Risk Oriented to surroundings, Maintained a safe environment. Abuse screen: Denies threats or abuse. Nutritional screening: No deficits noted. Tuberculosis screening: No symptoms or risk factors identified. Assessment: 20:19 General: Appears uncomfortable, Behavior is cooperative. Pain: Complains of pain in kl umbilical area, right lower quadrant and left lower quadrant Pain currently is 7 out of 10 on a pain scale. Quality of pain is described as aching, Pain began gradually. GI: Bowel sounds present X 4 quads. Abd is soft Abdomen is tender to palpation X 4 quads. Reports anorexia, bloating, vomiting. 23:29 Reassessment: No changes from previously documented assessment. Patient and/or family vc1 updated on plan of care and expected duration. Pain level reassessed. Patient is alert, oriented x 3, equal unlabored respirations, skin warm/dry/pink. Neuro: Level of Consciousness is awake, alert, obeys commands, Oriented to person, place, time, situation, Appropriate for age. Cardiovascular: No deficits noted. Respiratory: Airway is patent Respiratory effort is even, unlabored, Respiratory pattern is regular, symmetrical, Breath sounds are clear. GI: Bowel sounds present X 4 quads. Abd is soft Abdomen is tender to palpation X 4 quads. Reports anorexia, bloating, vomiting. : No deficits noted. No signs and/or symptoms were reported regarding the genitourinary system. EENT: No deficits noted. No signs and/or symptoms were reported regarding the EENT system. Derm: Skin is intact, is healthy with good turgor, Skin is dry, Skin is normal. 05/05 00:39 Reassessment: Patient appears in no apparent distress at this time. Patient and/or jb4 family updated on plan of care and expected duration. Pain level reassessed. Patient is alert, oriented x 3, equal unlabored respirations, skin warm/dry/pink. Vital Signs: 05/04 17:52 BP 136 / 77; Pulse 99; Resp 18; Temp 99(O); Pulse Ox 99% on R/A; Weight 73.03 kg; cm10 Height 5 ft. 2 in. ; Pain 7/10; 17:52 Body Mass Index 29.45 (73.03 kg, 157.48 cm) cm10 17:52 Pain Scale: Adult cm10 ED Course: 17:02 Patient arrived in ED. mg5 17:03 Makayla Brady PA-C is PHCP. sb4 17:03 Shar Palacios MD is Attending Physician. sb4 17:54 Triage completed. cm10 17:55 Arm band placed on Patient placed in waiting room. cm10 19:37 Urinalysis w/ reflexes Sent. vk 19:37 Urine collected: clean catch specimen, clear. vk 19:51 Radiology exam delayed due to lab results not completed at this time. (BUN/Creatinine). nj 19:51 Radiology exam delayed due to IV insertion attempt and/or patient not having nj appropriate IV at this time. 19:54 CBC with Diff Sent. vc1 19:54 CMP Sent. vc1 19:54 Lipase Sent. vc1 20:18 Inserted saline lock: 22 gauge in left forearm, using aseptic technique. Blood kl collected. Flushed with 10 mL NS Missed attempt(s): 20 gauge in right antecubital area. 20:21 Door closed. Noise minimized. Warm blanket given. kl 22:37 CT Abd/Pelvis - IV Contrast Only In Process Unspecified. EDMS 23:30 Patient has correct armband on for positive identification. Bed in low position. vc1 05/05 00:39 Provided Education on: discharge instructions.. jb4 Administered Medications: 00:38 Drug: Potassium PO Effervescent Tablet 50 mEq PO once; dissolve in 4 ounces of water or jb4 juice Route: PO; 00:38 Follow up: Response: No adverse reaction; Medication administered at discharge. jb4 00:38 Drug: metroNIDAZOLE PO 500 mg PO once Route: PO; jb4 00:39 Follow up: Response: No adverse reaction; Medication administered at discharge. jb4 Medication: 05/04 23:30 VIS not applicable for this client. vc1 Outcome: 05/05 00:23 Discharge ordered by . sb4 00:39 Discharged to home ambulatory, jb4 00:39 Condition: stable 00:39 Discharge instructions given to patient, Instructed on discharge instructions, follow up and referral plans. medication usage, Demonstrated understanding of instructions, follow-up care, medications, Prescriptions given X 1, 00:40 Patient left the ED. jb4 Signatures: Dispatcher [employer] EDMS Goldie Buitragoberly, RN RN Henrique Oropeza RN RN jb4 Nick Hardy Vanessa, RN RN 1 Makayla Brady, JUAN [email or web address] Belinda Covarrubias RN RN cm10 [facility]5 Jenn Smalls
--- NOTE | 2024-05-05 00:24 | EDPHYS ---
Physician Documentation [facility] Name: Sujata Santillan Age: 48 yrs Sex: Female : 1975 Arrival Date: 05/04/2024 Time: 16:58 Bed 9 Private MD: ED Physician Shar Palacios HPI: 05/04 17:55 This 48 yrs old Female presents to ER via Ambulatory with complaints of sb4 Abdominal Pain. 17:55 The patient presents with abdominal pain abdominal distention that is diffuse. Onset: sb4 The symptoms/episode began/occurred 3 day(s) ago. The symptoms do not radiate. Associated signs and symptoms: Pertinent positives: nausea and vomiting. The patient has not experienced similar symptoms in the past. The patient has not recently seen a physician. abdominal pain and bloating x 3 days. has taken gas x and drank natural teas, has had normal BMs. started experiencing nausea and vomiting yesterday. Historical: - Allergies: 17:54 No Known Allergies; cm10 - Home Meds: 17:54 None [Active]; cm10 - PMHx: 17:54 None; cm10 - PSHx: 17:54 Appendectomy; section; cm10 - Immunization history:: Adult Immunizations up to date. - Infectious Disease History:: Denies. - Social history:: Smoking status: Patient denies any tobacco usage or history of. ROS: 17:55 Constitutional: Negative for fever, chills, and weight loss, sb4 17:55 Abdomen/GI: Positive for abdominal pain, nausea and vomiting, abdominal distension, 17:55 All other systems are negative, Exam: 17:55 Constitutional: This is a well developed, well nourished patient who is awake, alert, sb4 and in no acute distress. Head/Face: Normocephalic, atraumatic. Eyes: Extra-ocular motions intact. Periorbital areas with no swelling, redness, or edema. ENT: Mucous membranes moist. Cardiovascular: Regular rate and rhythm with a normal S1 and S2. Respiratory: Lungs have equal breath sounds bilaterally, clear to auscultation and percussion. No rales, rhonchi or wheezes noted. No increased work of breathing, no retractions or nasal flaring. Skin: Warm, dry with normal turgor. Normal color with no rashes, no lesions, and no evidence of cellulitis. MS/ Extremity: Pulses equal, no cyanosis. Neurovascular intact. Full, normal range of motion. 17:55 Abdomen/GI: Inspection: distension, that is mild, in the right upper quadrant, left upper quadrant, right lower quadrant and left lower quadrant, Bowel sounds: normal, Palpation: soft, mild abdominal tenderness, in the epigastric area, Vital Signs: 17:52 BP 136 / 77; Pulse 99; Resp 18; Temp 99(O); Pulse Ox 99% on R/A; Weight 73.03 kg; cm10 Height 5 ft. 2 in. ; Pain 7/10; 17:52 Body Mass Index 29.45 (73.03 kg, 157.48 cm) cm10 17:52 Pain Scale: Adult cm10 MDM: 17:09 Patient medically screened. sb4 08 00:22 Data reviewed: vital signs, nurses notes, lab test result(s), radiologic studies, and sb4 as a result, I will discharge patient. Counseling: I had a detailed discussion with the patient and/or guardian regarding the historical points, exam findings, and any diagnostic results supporting the discharge/admit diagnosis, lab results, radiology results, to return to the emergency department if symptoms worsen or persist or if there are any questions or concerns that arise at home. 08 17:54 Order name: CBC with Diff; Complete Time: 20:04 sb4 05/04 17:54 Order name: CMP; Complete Time: 20:21 sb4 05/04 17:54 Order name: Lipase; Complete Time: 20:21 sb4 05/04 17:54 Order name: Test, Urine; Complete Time: 22:15 sb4 05/04 17:54 Order name: Urinalysis w/ reflexes; Complete Time: 20:07 sb4 05/04 17:54 Order name: CT Abd/Pelvis - IV Contrast Only sb4 05/04 17:54 Order name: IV Saline Lock; Complete Time: 19:54 sb4 05/04 17:54 Order name: Labs collected and sent; Complete Time: 19:54 sb4 Administered Medications: 00:38 Drug: Potassium PO Effervescent Tablet 50 mEq PO once; dissolve in 4 ounces of water or jb4 juice Route: PO; 00:38 Follow up: Response: No adverse reaction; Medication administered at discharge. jb4 00:38 Drug: metroNIDAZOLE PO 500 mg PO once Route: PO; jb4 00:39 Follow up: Response: No adverse reaction; Medication administered at discharge. jb4 Disposition: 05/04 20:41 Co-signature as Attending Physician, Shar Palacios MD I reviewed the patient's care rt provided by the Advanced Practice Provider and agree with the diagnosis and treatment plan. Disposition Summary: 05/05/24 00:23 Discharge Ordered Notes: Location: Home sb4 Problem: an ongoing problem sb4 Symptoms: have improved sb4 Condition: Stable sb4 Diagnosis - Enteritis sb4 - Hypokalemia sb4 Followup: sb4 - With: Private Physician - When: As needed - Reason: Recheck today's complaints, Re-evaluation by your physician Discharge Instructions: - Discharge Summary Sheet sb4 - Viral Gastroenteritis, Adult sb4 - Hypokalemia sb4 Forms: - Antibiotic Education sb4 - Patient Portal Instructions sb4 - Leadership Thank You Letter sb4 Prescriptions: - Flagyl 500 mg Oral Tablet - take 1 tablet ORAL route every 12 hours for 7 days; 14 tablet; Refills: 0, sb4 Product Selection Permitted Signatures: Dispatcher [employer] EDHenrique Del Rio, RN RN jb4 Makayla Brady PARadhaC PARadhaC sb4 Shar Palacios MD MD rt Belinda Covarrubias RN RN cm10
[2024-05-05] MEDS ORDERED: metroNIDAZOLE 500 MG TABLET ONE (00:26)
[2024-05-05] MEDS ORDERED: POTASSIUM 25 MEQ EFFERV TAB ONE (00:26)
[2024-05-05 01:00] VITALS: BP 136/77; TEMP 99; O2SAT 99
--- NOTE | 2024-05-05 12:52 | RAD REPORT ---
EXAM DESCRIPTION: CT - Abdomen Pelvis W Contrast - 05/04/2024 10:36 pm CLINICAL HISTORY: Abdominal pain and distention. TECHNIQUE: Axial computed tomography images of the abdomen and pelvis with intravenous contrast. S agittal and coronal reformatted images were created and reviewed. This CT exam was performed using one or more of the following dose reduction techniques: automated exposure control, adjustment of t he mA and/or kV according to patient size, and/or use of iterative reconstruction technique. COMPARISON: CT Abdomen pelvis with IV contrast 11/14/2018. FINDINGS: Lung bases: Minimal bibasilar subsegmental atelectasis/pleural parenchymal scar. ABDOMEN: Liver: Unremarkable. No mass. Gallbladder and bile ducts: Unremarkable. No calcified stones. No ductal dilation. Pancreas: Unremarkable. No mass. No ductal dilation. Spleen: Splenic parenchymal calcifications compatible with remote granulomatous organism exposure. Adrenals: Unremarkable. No mass. Kidneys and ureters: Unremarkable. Normal renal cortical enhancement. No calculi. No hydronephros is. Stomach and bowel: Multiple small bowel loops appear somewhat thickened. Moderate stool within th e proximal large bowel. No obstruction. PELVIS: Appendix: Interval appendectomy. Bladder: Mild circumferential urinary bladder wall thickening. Reproductive: Lobulated fibroid uterus. 2.7 cm right ovarian cyst. The left ovary is unremarkable a s visualized. Incidental note is made of a tampon within the vaginal canal. ABDOMEN and PELVIS: Intraperitoneal space: Trace mesenteric and pelvic free fluid. No free air. Bones/joints: Mild multilevel osteophytic lipping. Remote left anterior 10th rib fracture. No acute fracture. No dislocation. Soft tissues: Bilateral breast implants. Tiny fat-containing umbilical hernia. Vasculature: Unremarkable. No abdominal aortic aneurysm. Lymph nodes: Unremarkable. No enlarged lymph nodes. IMPRESSION: 1. Findings which may reflect mild nonspecific enteritis. 2. Mild circumferential urinary bladder wall thickening. Please correlate clinically for cystitis. 3. A 2.7 cm right ovarian cyst. No follow-up imaging is recommended. Reference: JACR 2019;17(2) :[id number] 4. Other findings as above. Electronically signed by: Jason William MD 05/05/2024 12:14 AM CDT Due to temporary technical issues with the PACS/Fluency reporting system, reports are being signed by the in house radiologist without review as a courtesy to ensure prompt reporting. The interpreting r adiologist is fully responsible for the content of the report.
== END 2024-05-05 00:40 | disposition home or self-care (01) ==
LOC: ER 16:58
DX: K52.9 Noninfective gastroenteritis and colitis, unspecified (principal); E87.6 Hypokalemia
CPT/HCPCS: 36415; 74177; 80053; 81001; 81025; 83690; 85025; Q9967